=== PATIENT | female | born 1945 | race Two or more races ===

== ENCOUNTER 2024-05-15 11:37 | Outpatient (RCR) | payer OTHER, SELFPAY | END 2024-05-27 23:59 | disposition home or self-care (01) | LOC: SCTC 11:37 | PROVIDERS: PCP Internal Medicine; Referring Provider Internal Medicine; Visit Provider Internal Medicine Hematology & Oncology | DX: C18.4 Malignant neoplasm of transverse colon (principal); R92.8 Other abnormal and inconclusive findings on diagnostic imaging of breast; E61.1 Iron deficiency; Z90.49 Acquired absence of other specified parts of digestive tract | CPT/HCPCS: 99212; G0463 ==